=== PATIENT | female | born 1975 | race Caucasian/White ===

== ENCOUNTER 2017-02-09 03:01 | Emergency (ER) | payer OTHER ==
--- NOTE | 2017-02-16 07:39 | ER ---
ADMIT: 02/09/2017 RM/LOC: ER [facility] MR#: [id number] [place], [place] [address] [place] [address] [place] [address] Emergency Room Report SEX: F AGE: 41 : 1975 DATE: 02/09/2017 ADDENDUM: A 41-year-old female, comes in complaining of a headache. She does have a long history of migraines, it feels like her previous migraines. We did get an IV started. She received approximately 500 mL of normal saline, 30 mg of Toradol IV, 50 mg of Benadryl IV, and 10 mg of Reglan IV. Her headache symptoms were essentially completely resolved, and she felt like she was ready to go home. The patient was discharged in significantly improved condition, nontoxic, and to follow up with the [facility] as needed. DIAGNOSIS: Migraine. Janes Oviedo MD/ jimmy JOB #: [id number] CC: Janes Oviedo MD, Attending Physician [facility] Phys[facility], Family Physician
== END 2017-02-09 04:15 | disposition home or self-care (01) ==
LOC: ER 03:01
DX: G43.909 Migraine, unspecified, not intractable, without status migrainosus (principal); F17.210 Nicotine dependence, cigarettes, uncomplicated; Z88.0 Allergy status to penicillin; Z79.899 Other long term (current) drug therapy

== ENCOUNTER 2017-04-29 01:15 | Emergency (ER) | payer OTHER ==
--- NOTE | 2017-04-29 07:02 | ER ---
ADMIT: 04/29/2017 RM/LOC: ER [facility] MR#: [id number] [address] [place] [address] [facility] [address] [place] [address] Emergency Room Report SEX: F AGE: 41 : 1975 DATE: 04/29/2017 The patient is a 41-year-old female with typical throbbing migraine headache for the past 4 hours. Took her Imitrex, Zofran with no improvement. Does admit to nausea, vomiting, photophobia. Exam remarkable for nontoxic, afebrile female, moderate distress. Exam otherwise unremarkable. Given IV fluids, Zofran, Toradol, magnesium, DHE with complete relief of migraine. Follow up with [facility] as needed. Holden Hernandez MD/ jimmy JOB #: [id number] CC: Holden Hernandez MD, Attending Physician . [facility], Family Physician . [facility]
== END 2017-04-29 03:00 | disposition home or self-care (01) ==
LOC: ER 01:15
DX: G43.909 Migraine, unspecified, not intractable, without status migrainosus (principal); F17.210 Nicotine dependence, cigarettes, uncomplicated; F32.9 Major depressive disorder, single episode, unspecified; Z88.0 Allergy status to penicillin; Z79.899 Other long term (current) drug therapy